=== PATIENT | female | born 1970 | race Caucasian/White ===

== ENCOUNTER 2017-06-08 21:35 | Emergency (ER) | payer OTHER ==
[~2017-06-08] VITALS: Ht 162.6 cm; Wt 49.9 kg
[~2017-06-08 21:35] MED LIST: ACETAMINOPHEN-1 EAC1 PO; AMBIEN 5 MG TABL5 M1 PO; AMITRIPTYLINE H25 M2 PO; AZITHROMYCIN 2250 MG PO; BACTRIM DS TAB1 EACH PO; DILANTIN100 MG PO; FIORICET 50-301 EACH PO; FIORINAL WITH1 EACH PO; FLONASE 0.05%50 MCG NASAL; IMITREX100 MG PO; NORCO 10-325 T1 EACH PO; PHENERGAN 25 MG25 M1 PO; PHENERGAN50 MG RC; TESSALON PERLE100 MG PO; THEOPHYLLINE S300 MG PO; ZOFRAN ODT4 MG PO
[2017-06-08] MEDS ORDERED: SYNTHROID75 MCG PO (23:04)
[2017-06-08] MEDS ORDERED: SENNA8.6 MG PO (23:46)
[2017-06-08] MEDS ORDERED: NORCO 5-325 TA1 EACH PO (23:49)
[2017-06-09 00:26] VITALS: BP 109/71
== END 2017-06-09 00:27 | disposition home or self-care (01) ==
LOC: ER 21:35
DX: S06.0X0A Concussion without loss of consciousness, initial encounter (principal); F10.99 Alcohol use, unspecified with unspecified alcohol-induced disorder; Y04.2XXA Assault by strike against or bumped into by another person, initial encounter; Y93.89 Activity, other specified; Y92.89 Other specified places as the place of occurrence of the external cause; Y99.8 Other external cause status; Z90.710 Acquired absence of both cervix and uterus; Z95.5 Presence of coronary angioplasty implant and graft; Z98.890 Other specified postprocedural states

== ENCOUNTER 2019-04-01 22:08 | Inpatient (IN) | payer OTHER ==
[~2019-04-01] VITALS: Ht 162.6 cm; Wt 54.9 kg
--- NOTE | ~2019-04-01 | HC ---
[facility] [place] [address] CONSULTATION Name: KAYLEEN PAINTER Room #: 247-P ADM IN M.R.#: [id number] Admission: 04/01/19 ������������������ Attend Phys: Alli Guan MD Discharge: ������������������ Date of : 74 Report #: [id number] THIS REPORT FOR: //name// CC: Alli Guan [facility] unknown DATE OF SERVICE: 04/02/2019 HISTORY OF PRESENT ILLNESS: This is a 48-year-old female patient who was evaluated by me for "seizures." I talked to the patient's significant others and then talked to the patient herself because she woke up. I talked to the Emergency Room physician. I had seen this patient in 2018 and that time, we had difficult time transferring her to a tertiary care center. I had talked to the patient and the family that time that this hospital is not a proper hospital for her to take care of it because we do not have epileptologist on staff, we do not have video monitored EEG and they should establish care with some bigger hospital and next time they go to those hospitals. The patient apparently had recurrent seizures and was brought here. The history I get is that after she was dismissed from here, she went to [facility] who did a video monitored EEG. They thought the seizures were from stress and they discontinued all the seizure medications. She continued to have spells and she went to [facility]. She saw an epileptologist there and they started her on small dose of Lamictal I do not have any records from either place. The patient takes Lamictal, but apparently a small dose of 25 mg daily or twice daily. She said she was taking that. REVIEW OF SYSTEMS: Positive for craniotomy, for benign tumor ablation, pulmonary emboli. She has one kidney and a possibility of seizure disorder. She also at one time has been on multiple psychotropic medications. The chart indicates that she has been on different medications and I do not know what she is taking and what she is not taking. She had hysterectomy in the past. This was relevant 14-point review of system. PAST MEDICAL HISTORY: As described above. FAMILY HISTORY: Unremarkable. SOCIAL HISTORY: Positive for smoking. PHYSICAL EXAMINATION: NEUROLOGIC: Indicate the patient was pretty sleepy when seen first time, but then she wakes up and she is alert and oriented and follows commands and can ask appropriate questions. Her pupil has been asymmetrical, but that has been unchanged. She has no meningeal sign. NECK: There is no carotid bruit. [address] [address] CONSULTATION Name: KAYLEEN PAINTER Room #: [address] [place] [address] IN M.R.#: [id number] Admission: 04/01/19 ������������������ Attend Phys: Alli Guan MD Discharge: ������������������ Date of : 74 Report #: [id number] CARDIAC AND RESPIRATORY: Appear noncontributory. IMPRESSION: This patient has been a management problem. I had talked to them last time and talked to them again the limitation of our hospital and she should go to a different hospital with epileptologist and video monitored EEG. I talked to the admitting physician. We will get the record from there and try to transfer her there, but the last time the transfer was very difficult and it may be even more difficult if their diagnosis was stress induced seizure. In the meantime, Emergency Room physician gave her a dose of Keppra. I will restart her on dose for Lamictal. There is a confusion how much Lamictal she was taking. I will give her at least one dose now. I did an emergent EEG, which showed slowing, but does not appear to be showing any spike and slow wave activity. We may give her another dose of Keppra. The slowing in the left temporal area is unchanged. We will see the patient again today. ��������������������������������������������� ���������������������������������������� By: ��������������������������������������������� 0441 0512 Darinel Shea MD /nt
--- NOTE | ~2019-04-01 | EEG ---
[facility] [place] [address] ELECTROENCEPHALOGRAM Name: KAYLEEN PAINTER Room #: 247-P ADM IN M.R.#: [id number] ������������������ Admission: 04/01/19 ������������������ Attend Phys: Alli Guan MD Discharge: ������������������ Date of : 74 Report #: [id number] ����������������������������������������������������������������� [id number] THIS REPORT FOR: //name// CC: Alli STERN unknown DATE OF SERVICE: 04/02/2019 INDICATIONS: This patient is being evaluated for seizures. DESCRIPTION OF PROCEDURE: EEG was done by placing the electrode by standard 10-20 system of electrode placement. Both referential and sequential montages were used for recording. Background activity in this patient's EEG is about 10 Hz and 30 microvolt. It is asymmetrical activity. It is slow in the left temporal area. That slowing is present throughout the record. There does not appear to be any spike and slow wave activity present in that location. IMPRESSION: This patient's EEG demonstrates slowing in the left temporal area. The patient apparently has a pathology in that region. There does not appear to be any spike and slow wave activity present there and it is mostly the slowing. Although EEG is abnormal in that location. EEG is still reasonably well formed in spite of the patient's history that she had multiple seizures. ���������������������������������������� ���������������������������������������� By: ��������������������������������������������� 0400 0408 Darinel Shea MD /nt
[~2019-04-01 22:08] MED LIST changes: +ADDERALL 30 MG30 MG PO; +NORCO 5-325 TA1 EACH PO; +SENNA8.6 MG PO; +SYNTHROID75 MCG PO; +VALIUM5 MG PO
[2019-04-01 22:09] VITALS: BP 103/63
[2019-04-01] MEDS ORDERED: LAMICTAL100 MG PO (22:24)
--- NOTE | 2019-04-01 22:25 | NUR ---
BG 104
[2019-04-01 22:31] LABS: ABSOLUTE NEUTROPHILS 8.7 thou/uL (1.4-8.2); BASOPHILS 1.2 % (0.0-2.0); EOSINOPHILS 1.5 % (0.0-3.0); HEMATOCRIT 38.8 % (37.0-47.0); HEMOGLOBIN 13.1 gm/dL (12.0-15.0); LYMPHOCYTES 21.7 % (24.0-44.0); MCH 32.4 pg (26.0-34.0); MCHC 33.8 g/dL (28.0-37.0); MONOCYTES 6.8 % (1.0-8.0); PLATELET COUNT 305 thou/uL (150-400); POLYS 68.8 % (36.0-66.0); RBC 4.04 mil/uL (4.20-5.00); WBC 12.6 thou/uL (4.0-11.0)
[2019-04-01 22:40] LABS: ANION GAP 11 mmol/L (7-16); BUN 10 mg/dL (7-18); CALCIUM 8.7 mg/dL (8.5-10.1); CHLORIDE 105 mmol/L (98-107); CO2 24 mmol/L (21-32); CREATININE 0.9 mg/dL (0.6-1.0); GLUCOSE 91 mg/dL (74-106); POTASSIUM 3.7 mmol/L (3.5-5.1); SODIUM 140 mmol/L (136-145)
[2019-04-01 22:48] LABS: TROPONIN-I <0.06 ng/mL (<0.06)
[2019-04-01 23:59] LABS: URINE BILIRUBIN NEGATIVE (Negative); URINE BLOOD NEGATIVE (Negative); URINE CLARITY CLEAR; URINE COLOR YELLOW; URINE GLUCOSE-RANDOM* NEGATIVE (Negative); URINE KETONES NEGATIVE (Negative); URINE LEUKOCYTES-REFLEX NEGATIVE (Negative); URINE NITRITE-REFLEX NEGATIVE (Negative); URINE PROTEIN (DIPSTICK) NEGATIVE (Negative); URINE SPECIFIC GRAVITY <= 1.005 (1.005-1.035); URINE UROBILINOGEN 0.2 E.U./dl (0.2-1.0)
[2019-04-02] VITALS (8 sets, daily range): BP systolic 80–91; BP diastolic 41–55
[2019-04-02 00:02] LABS: AMP/METHAMP Negative (Negative); BARBITURATES Negative (Negative); BENZODIAZEPINES POSITIVE (Negative); COCAINE Negative (Negative); METHADONE Negative (Negative); OPIATES Negative (Negative); PCP Negative (Negative)
--- NOTE | 2019-04-02 01:32 | NUR ---
PT ARRIVED FROM ED AT 0040. PT AWAKE, ORIENTED TO PERSON AND PLACE. PT C/O GENERALIZED PAIN POST FALLS. SR ON THE MONITOR. BP SOFT. O2 SAT WNL ON RA. EEG DONE AT BEDSIDE BY HUONG. EDUCATION PROVIDED TO PT'S SPOUSE AND PT. WILL CONTINUE TO MONITOR PT.
--- NOTE | 2019-04-02 03:38 | NUR ---
PT WAS SEEN BY RN AT APPROXIMATELY 0258. PT WAS REQUESTING PAIN MEDS AT THIS TIME AND SPOUSE STATED, "SHE NEVER RATES HER PAIN AT A NINE, NOR DOES SHE EVER CRY WITH PAIN." RN EXITED THE ROON AND CALL LIGHT WAS PULLED BY SPOUSE. PT HAD A 14 SECOND SEIZURE AT THAT TIME. NO HEMODINAMIC CHANGES WERE SEEN. PT POST ICTAL AT AFTERWARDS. PT HAD MULTIPLE SEIZURES AFTERWARDS. Susanna ORELLANA SHAFT REPAIRER CONTACTED AT 0310. ORDERS FOR ATIVAN GIVEN FOR SEIZURES. DR THAKKAR, NEUROLOGY, CONTACTED AT 0325. PER DR THAKKAR, THIS APPEARS TO BE PSEUDO SEIZURES. HE WILL CHECK RESULTS OF EEG AND CALL BACK IF ORDERS NEED TO BE GIVEN. WILL CONTINUE TO MONITOR.
--- NOTE | 2019-04-02 04:15 | NUR ---
DR YU AT BEDSIDE AND SPOKE TO PT'S SPOUSE AT 0415.
[2019-04-02 05:08] LABS: CALCIUM 8.1 mg/dL (8.5-10.1); CREATININE 0.7 mg/dL (0.6-1.0); POTASSIUM 4.1 mmol/L (3.5-5.1)
[2019-04-02 05:13] LABS: HEMATOCRIT 35.6 % (37.0-47.0); HEMOGLOBIN 11.9 gm/dL (12.0-15.0); MCH 32.4 pg (26.0-34.0); MCHC 33.5 g/dL (28.0-37.0); MCV 96.9 fL (80.0-100.0); RBC 3.67 mil/uL (4.20-5.00); RDW 12.5 % (10.5-14.5)
--- NOTE | 2019-04-02 05:39 | NUR ---
PT HAD BEEN COMPLETELY ALERT AND ORIENTED. PT REQUESTED SOME ATIVAN AT 0535. RN RESPONDED THAT ATIVAN WAS ONLY FOR BREAKTHROUGH SEIZURES. RN STEPPED OUT OF THE ROOM FOR APPROXIMATELY 2 MINUTES TO GET SCHEDULED LAMICTAL, UPON RETURN PT WAS CONFUSED, SHE STATED THAT SHE WAS SEEING SOME LIGHTS AND SHE EVENTUALLY BECAME VERY DROWSY AND ALMOST UNAROUSABLE. BP SOFT.
[2019-04-02] MEDS ORDERED: LAMOTRIGINE25 MG PO ×2 (09:33→10:29)
--- NOTE | 2019-04-02 09:55 | NUR ---
ASSUMED CARE AT 0700 TODAY. NO SEIZURE ACTIVITY NOTED. ATE 100% OF BREAKFAST AND ASKED FOR MORE FOOD, DIETARY NOTIFIED. PATIENT REFUSES TO SIGN CONSENT FOR MEDICAL RECORDS FROM [facility] OR [facility] AND WANTS TO LEAVE [facility]. DR MATHEWS NOTIFED AND UPDATED TO THE SITUATION.
--- NOTE | 2019-04-02 10:20 | NUR ---
Signifant other stated that she was post ictial, patient was awakened by calling her name, neuro status unchanged. Monitor strip reviewed and patient was in NSR without ectopy with rate in the 60's. No incontience noted. Requesting S/O to help her to restroom, refuses to have this nurse help her.
[2019-04-02] MEDS ORDERED: KEPPRA 500 MG500 M1 PO (10:39)
--- NOTE | 2019-04-02 10:40 | NUR ---
Called into the room, patient is upset that her paperwork is not ready, dressed and ready to leave. Marched over to the commode to void, steady gait, refuses to sit, up and about in room, signifiant other present. Upset that I did not go find him earlier, educated that I was popular and needed else where. Patient threw wadded up BP cuff at staff. Dr Medeiros notified.
--- NOTE | 2019-04-02 11:31 | NUR ---
Discharge instructions reviewed with patient and S/O, who left to retrive a top for her from home as her other top was ripped and not covering her.
--- NOTE | 2019-04-02 12:45 | NUR ---
PATIENT DISCHAGED TO HOME WITH S/O, UPSET THAT WE WOULD NOT PROVIDE A NOTE FOR HIM TO BE OFF WORK TODAY. PATIENT CUSSING AT THIS NURSE SHE LEFT, STOPPED IN THE RESTROOM TO VOID ON THE WAY OUT AND THEN REFUSED TO HAVE THIS NURSE ON THE ELEVATOR. SECURITY NOTIFIED.
--- NOTE | 2019-04-04 17:24 | EKG ---
[address] [place] [address] ELECTROCARDIOGRAM REPORT Name: KAYLEEN PAINTER Room #: 247-P [facility] IN M.R.#: [id number] ������������������ Admission: 04/01/19 ������������������ Attend Phys: Alli Guan MD Discharge: 04/02/19 ������������������ Date of : 74 Report #: [id number] ����������������������������������������������������������������� [id number] THIS REPORT FOR: //name// [facility] ED Test Date: 2019-04-01 Test Time: 23:29:49 Pat Name: KAYLEEN PAINTER Department: Room: [facility] Gender: F Dean [employer] Women: santhosh : 1970 Requested By: Lan Juarez Order Number: [id number] MD: Axel Haines Measurements Intervals [place] Rate: 89 P: 40 ME: 157 QRS: 53 QRSD: 101 T: 56 QT: 373 QTc: 454 Interpretive Statements Sinus rhythm Early transition Nonspecific ST-T wave changes Compared to ECG 03/13/2018 08:16:00 No significant changes Electronically Signed On 04-04-2019 17:24:23 CDT by Axel Haines [email or web address] ��������������������������������������������� <ELECTRONICALLY SIGNED> ���������������������������������������� By: Axel Haines MD ��������������������������������������������� 04/04/19 2524 2329 [id number] Axel Haines MD /EPI
== END 2019-04-02 12:35 | disposition home or self-care (01) | DRG 101 ==
LOC: ER 22:08 → ICU 23:56 → EROBS 23:56 → ICU 04-02 00:33
PROVIDERS: Emergency Medicine; Nurse Practitioner Family; ADMIT Hospitalist
DX: G40.909 Epilepsy, unspecified, not intractable, without status epilepticus (principal); Q60.0 Renal agenesis, unilateral; H57.052 Tonic pupil, left eye; F43.22 Adjustment disorder with anxiety; D33.2 Benign neoplasm of brain, unspecified; F17.210 Nicotine dependence, cigarettes, uncomplicated; Z86.711 Personal history of pulmonary embolism; Z90.710 Acquired absence of both cervix and uterus; Z79.899 Other long term (current) drug therapy; Z88.8 Allergy status to other drugs, medicaments and biological substances; Z82.49 Family history of ischemic heart disease and other diseases of the circulatory system